=== PATIENT | male | born 1950 | race Caucasian/White ===

== ENCOUNTER 2017-11-03 13:28 | Emergency (ER) | payer MEDICARE, SELFPAY ==
[2017-11-03 13:53] LABS: Hemoglobin 15.1 g/dL (14.0-18.0); Mean Corpuscular HGB CONC 35.1 g/dL (32.0-36.0); Mean Corpuscular Hemoglobin 28.4 pg (27.0-31.0); Mean Corpuscular Volume 80.9 fL (80.0-94.0); Platelet Count 165 thou/uL (130-400); RBC Distribution Width 12.9 % (11.5-14.5); Red Blood Cell (RBC) Count 5.31 mill/uL (4.70-6.10); White Blood Cell (WBC) Count 8.4 thou/uL (4.8-10.8)
[2017-11-03 13:54] LABS: #Basophils 0.1 thou/uL (0.0-0.2); #Eosinphils 0.6 thou/uL (0.0-0.7); #Monocytes 0.5 thou/uL (0.11-0.59); #Neutrophils 5.2 thou/uL (1.40-6.50); %Eosinophils 7.2 % (0.0-10.0); %Lymphocytes 23.6 % (21.0-51.0); %Monocytes 6.1 % (0.0-10.0); %Neutrophils 62.1 % (42.0-75.0); Mean Platelet Volume 6.9 fL (7.4-10.4)
[2017-11-03 14:03] LABS: ALT (SGPT) 17 U/L (8-55); AST (SGOT) 15 U/L (5-34); Albumin 3.9 g/dL (3.4-4.8); Alkaline Phosphatase 102 U/L (40-150); Anion Gap 12 mmol/L (10-20); BUN (Urea Nitrogen) 12 mg/dL (8.4-25.7); Bilirubin, Total 0.5 mg/dL (0.2-1.2); Calc. Creatinine Clearance 0 mL/min (70-130); Calcium 9.8 mg/dL (7.8-10.44); Carbon Dioxide 25 mmol/L (23-31); Chloride 100 mmol/L (98-107); Estimated GFR-MDRD 76; Globulin 3.1 g/dL (2.4-3.5); Glucose 93 mg/dL (80-115); Potassium 4.1 mmol/L (3.5-5.1); Sodium 133 mmol/L (136-145)
[2017-11-03 14:05] LABS: CKMB 2.1 ng/mL (0-6.6); Troponin I 0.013 ng/mL (< 0.028)
--- NOTE | 2017-11-03 14:08 | CT ---
NONCONTRAST CT HEAD: Date: 11-03-17 History: Left sided weakness, facial droop. Symptoms started around 12 p.m. Comparison: MRI brain, 07-28-05 FINDINGS: There is diminished attenuation of the periventricular white matter which is nonspecific but likely r eflective of chronic small vessel ischemic changes which do appear mildly progressed when compared to prior MRI in 2006. There is a small low density focus seen within the left thalamus consistent with a lacunar infarction of indeterminate age. There is no evidence of an acute cortical infarction, hemo rrhage, mass effect or midline shift. The ventricular system is normal in size, shape, and position. There is mild cerebral volume loss, unchanged from study in 2006. Visualized paranasal sinuses and mastoid air cells are clear. Calvarial structures are intact. IMPRESSION: 1. 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 2. Chronic small vessel ischemic changes and cerebral volume loss. 3. Vascular calcifications in the carotid siphons and distal right vertebral artery. 4. Above findings discussed with Dr. Allen in the Emergency Department on 11-03-17 at 1352 hours. POS: GUZMAN
== END 2017-11-03 14:50 | disposition short-term general hospital (02) ==
LOC: BURERS 13:28
DX: I63.9 Cerebral infarction, unspecified (principal); I10 Essential (primary) hypertension; F17.210 Nicotine dependence, cigarettes, uncomplicated; Z79.82 Long term (current) use of aspirin; Z79.899 Other long term (current) drug therapy; N40.0 Benign prostatic hyperplasia without lower urinary tract symptoms
CPT/HCPCS: 36416; 70450; 80053; 82553; 84484; 85025; 85610; 85730; 93005; 94760

== ENCOUNTER 2018-02-11 19:32 | Emergency (ER) | payer MEDICARE ==
[2018-02-11 19:55] LABS: #Basophils 0.1 thou/uL (0.0-0.2); #Eosinphils 0.5 thou/uL (0.0-0.7); #Lymphocytes 2.3 thou/uL (1.20-3.40); #Monocytes 0.5 thou/uL (0.11-0.59); #Neutrophils 3.3 thou/uL (1.40-6.50); %Basophils 0.9 % (0.0-1.0); %Eosinophils 7.5 % (0.0-10.0); %Lymphocytes 34.4 % (21.0-51.0); %Monocytes 7.5 % (0.0-10.0); %Neutrophils 49.6 % (42.0-75.0); Hemoglobin 13.5 g/dL (14.0-18.0); Mean Corpuscular HGB CONC 34.4 g/dL (32.0-36.0); Mean Corpuscular Volume 84.3 fL (78.0-98.0); Mean Platelet Volume 8.5 fL (7.4-10.4); Platelet Count 162 thou/uL (130-400); RBC Distribution Width 12.7 % (11.5-14.5); Red Blood Cell (RBC) Count 4.67 mill/uL (4.70-6.10); White Blood Cell (WBC) Count 6.7 thou/uL (4.8-10.8)
[2018-02-11 20:05] LABS: ALT (SGPT) 25 U/L (8-55); AST (SGOT) 18 U/L (5-34); Alkaline Phosphatase 146 U/L (40-150); Anion Gap 13 mmol/L (10-20); BUN (Urea Nitrogen) 12 mg/dL (8.4-25.7); Bilirubin, Total 0.4 mg/dL (0.2-1.2); Calc. Creatinine Clearance 0 mL/min (70-130); Calcium 9.7 mg/dL (7.8-10.44); Carbon Dioxide 24 mmol/L (23-31); Chloride 101 mmol/L (98-107); Estimated GFR-MDRD 73; Glucose 102 mg/dL (80-115); Sodium 134 mmol/L (136-145)
[2018-02-11 20:07] LABS: Troponin I Less than 0.010 ng/mL (< 0.028)
--- NOTE | 2018-02-11 21:05 | CT ---
CT BRAIN 02/11/18 HISTORY: Stroke. Noncontrast enhanced CT of the brain obtained. Noncontrast enhanced CT images of the brain demonstrates no evidence of acute intracranial masses, he morrhages, strokes, or contusions. IMPRESSION: Normal CT brain. POS: LAUREN
--- NOTE | 2018-02-11 22:29 | CT ---
CTA BRAIN AND CAROTID ARTERIES 02/11/18 HISTORY: Possible stroke. Contrast enhanced CTA of the carotid arteries and brain obtained. 2D and 3D reconstructed images perf ormed on an independent 3D workstation. Images demonstrate emphysematous changes seen in the upper lobes of the lungs. The right and left common carotid arteries are patent proximally. Some atherosclerotic plaque seen in the distal aspect of the right and left common carotid arteries. This is however no flow limiting. The right ICA is patent although asymmetrically smaller than the left ICA. The right anterior cerebra l artery originates from the left ICA. The right ICA ends in the right MCA without evidence of contri butions to the anterior cerebral arteries while the left ICA provides all of the flow to the right an d left anterior cerebral arteries as well as the left middle cerebral artery. 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 No evidence of filling defect seen in the right or left MCA or CORINEN distributions. The right vertebral artery is dominant significantly larger than the left. Both vertebral arteries ar e patent. No evidence of intracranial aneurysms or strokes seen. IMPRESSION: Anatomic variation as described above without evidence of acute strokes, filling defects seen in the intracranial arteries or internal carotid arteries. Findings called to Dr. Gomez at 8:52 p.m. on 02/11/18. Code CR POS: LAUREN
== END 2018-02-11 21:52 | disposition short-term general hospital (02) ==
LOC: BURERS 19:32
DX: I63.9 Cerebral infarction, unspecified (principal); I10 Essential (primary) hypertension; J44.9 Chronic obstructive pulmonary disease, unspecified; F17.210 Nicotine dependence, cigarettes, uncomplicated; Z79.899 Other long term (current) drug therapy
CPT/HCPCS: 36416; 70450; 70496; 70498; 80053; 82553; 84443; 84484; 85025; 93005

== ENCOUNTER 2020-08-29 15:24 | Emergency (ER) | payer MEDICARE ==
[~2020-08-29 15:24] MED LIST: Iopamidol 370 76% 100 ML VIAL ONE
[2020-08-29] MEDS ORDERED: Nitroglycerin 0.4 MG TAB 1 EACH ONE (15:38)
[2020-08-29 16:04] LABS: #Basophils 0.1 thou/uL (0.0-0.2); #Eosinphils 0.6 thou/uL (0.0-0.7); #Lymphocytes 1.2 thou/uL (1.20-3.40); #Monocytes 0.7 thou/uL (0.11-0.59); #Neutrophils 6.5 thou/uL (1.40-6.50); %Basophils 0.8 % (0.0-1.0); %Eosinophils 7.1 % (0.0-10.0); %Lymphocytes 13.5 % (21.0-51.0); %Monocytes 7.5 % (0.0-10.0); %Neutrophils 71.1 % (42.0-75.0); Hemoglobin 13.9 g/dL (14.0-18.0); Mean Corpuscular HGB CONC 32.6 g/dL (32.0-36.0); Mean Corpuscular Hemoglobin 27.4 pg (27.0-31.0); Mean Corpuscular Volume 84.3 fL (78.0-98.0); Mean Platelet Volume 8.1 fL (7.4-10.4); Platelet Count 185 thou/uL (130-400); Red Blood Cell (RBC) Count 5.06 mill/uL (4.70-6.10); White Blood Cell (WBC) Count 9.1 thou/uL (4.8-10.8)
[2020-08-29 16:18] LABS: ALT (SGPT) 16 U/L (8-55); AST (SGOT) 13 U/L (5-34); Albumin 3.5 g/dL (3.4-4.8); Alkaline Phosphatase 117 U/L (40-110); Anion Gap 17 mmol/L (10-20); BUN (Urea Nitrogen) 16 mg/dL (8.4-25.7); Bilirubin, Total 0.6 mg/dL (0.2-1.2); Calc. Creatinine Clearance 0 mL/min (70-130); Calcium 9.3 mg/dL (7.8-10.44); Carbon Dioxide 25 mmol/L (23-31); Chloride 102 mmol/L (98-107); Glucose 107 mg/dL (80-115); Potassium 3.8 mmol/L (3.5-5.1); Protein, Total 6.5 g/dL (5.8-8.1); Sodium 140 mmol/L (136-145)
[2020-08-29] MEDS ORDERED: Morphine 4 MG/ML VIAL ONE ×2 (17:28→20:03)
[2020-08-29] MEDS ORDERED: Levofloxacin 500 mg/D5W 100 ml Premix Bag ONE (18:23)
[2020-08-29] MEDS ORDERED: Promethazine HCl 25 MG/ML VIAL ONE (20:42)
[2020-08-29 22:03] LABS: SARS-CoV-2 NAA Rapid Test Not Detected (NotDetected)
== END 2020-08-30 18:00 | disposition short-term general hospital (02) ==
LOC: BURERS 15:24
DX: J18.9 Pneumonia, unspecified organism (principal); I10 Essential (primary) hypertension; J44.9 Chronic obstructive pulmonary disease, unspecified; F17.210 Nicotine dependence, cigarettes, uncomplicated; Z20.822 Contact with and (suspected) exposure to COVID-19; Z79.899 Other long term (current) drug therapy; Z86.73 Personal history of transient ischemic attack (TIA), and cerebral infarction without residual deficits
CPT/HCPCS: 0241U; 71045; 71275; 80053; 83605; 83880; 84484; 85025; 85379; 87040; 93005; 94760; 36415; 87149; 96365; 96367; 96375; 96376; J1956; J2270; J2550; J7620; Q9967